=== PATIENT | female | born 1970 | race Caucasian/White ===

== ENCOUNTER 2020-10-16 05:04 | Inpatient (IN) | payer MEDICAID, OTHER ==
[~2020-10-16] VITALS: Ht 157.5 cm; Wt 87.1 kg
[2020-10-16] MEDS ORDERED: ACETAMINOPHEN 650MG SUPP PR STA (05:12)
[2020-10-16] MEDS ORDERED: SODIUM CHLORIDE 0.9% 1000ML BAG (SEPSIS BOLUS) IV ONE (05:15)
[2020-10-16] MEDS ORDERED: VANCOMYCIN 1 G PREMIX 200 ML IV ONE (05:15)
[2020-10-16] MEDS ORDERED: PIPERACILLIN/TAZ 3.375G PREMIX 50 ML IV ONE (05:15)
[2020-10-16 05:41] LABS: BASOPHILS % 0.4 % (0.0-2.0); EOSINOPHILS % 0.2 % (0.0-5.0); HEMATOCRIT. 36.7 % (36.0-48.0); HEMOGLOBIN. 11.4 g/dL (12.0-16.0); LYMPHOCYTES % 33.1 % (20.0-50.0); MEAN CORPUSCULAR HEMOGLOBIN 23.3 pg (28.0-32.0); MEAN CORPUSCULAR VOLUME 74.9 fL (81.0-99.0); MEAN PLATELET VOLUME 8.5 fl (7.4-10.4); MONOCYTES % 10.3 % (2.0-8.0); PLATELET 324 x1000/uL (130-400); RED CELL DISTRIBUTION WIDTH 18.6 % (11.6-14.6)
[2020-10-16 05:48] LABS: CHLORIDE 98 mEq/L (98-107)
[2020-10-16 05:50] LABS: INR 1.1; PROTHROMBIN TIME 12.2 sec (9.6-11.0)
[2020-10-16 06:50] LABS: CLARITY URINE CLOUDY (CLEAR); COLOR URINE YELLOW (YELLOW); KETONES URINE NEGATIVE (NEGATIVE); LEUKOCYTE ESTERASE URINE TRACE (NEGATIVE); NITRITE URINE NEGATIVE (NEGATIVE); OCCULT BLOOD URINE NEGATIVE (NEGATIVE); PROTEIN URINE 1+ (NEGATIVE); SPECIFIC GRAVITY URINE 1.024 (1.005-1.030)
[2020-10-16] MEDS ORDERED: ONDANSETRON HCL 4MG/2ML INJ IV PRN (09:30)
[2020-10-16 10:35] VITALS: BP 97/57
[2020-10-16 12:00] VITALS: BP 102/32
[2020-10-16] MEDS: PIPERACILLIN/TAZOBACTAM 3.375 G in DEXT 5% WATER 100 ML IV SCH ×2 (13:11→18:21)
[2020-10-16] MEDS: ACETAMINOPHEN 650MG SUPP PR PRN ×2 (13:12→20:53)
[2020-10-16] MEDS ORDERED: IPRATROPIUM/ALBUTEROL 0.5-3(2.5)MG/3ML NEB HHN PRN (15:45)
[2020-10-16 16:00] VITALS: BP 90/60
[2020-10-16] MEDS ORDERED: DOCU-138 GT (19:43)
[2020-10-16] MEDS ORDERED: OMEP20CA14 GT (19:43)
[2020-10-16] MEDS ORDERED: PROP40TA7 GT (19:43)
[2020-10-16] MEDS ORDERED: ATROV INH (19:43)
[2020-10-16] MEDS ORDERED: METO-293 GT (19:43)
[2020-10-16 20:00] VITALS: BP 99/60
[2020-10-16] MEDS: IPRATROPIUM/ALBUTEROL 0.5-3(2.5)MG/3ML NEB HHN SCH (20:46)
[2020-10-17 00:15] VITALS: BP 116/66
[2020-10-17] MEDS: PIPERACILLIN/TAZOBACTAM 3.375 G in DEXT 5% WATER 100 ML IV SCH ×4 (00:18→17:08)
[2020-10-17] MEDS: IPRATROPIUM/ALBUTEROL 0.5-3(2.5)MG/3ML NEB HHN SCH ×4 (01:50→21:57)
[2020-10-17] MEDS ORDERED: INSU100V3 SUBCUT (02:46)
[2020-10-17] MEDS ORDERED: LOV40 SQ (02:46)
[2020-10-17 04:00] VITALS: BP 108/69
[2020-10-17] MEDS: ACETAMINOPHEN 325MG TABLET PO PRN ×2 (04:28→22:34)
[2020-10-17 06:43] LABS: BASOPHILS % 0.7 % (0.0-2.0); EOSINOPHILS % 2.2 % (0.0-5.0); HEMOGLOBIN. 8.8 g/dL (12.0-16.0); LYMPHOCYTES % 24.8 % (20.0-50.0); MEAN CORPUSCULAR HEMOGLOBIN 23.9 pg (28.0-32.0); MEAN CORPUSCULAR VOLUME 75.6 fL (81.0-99.0); MONOCYTES % 8.8 % (2.0-8.0); NEUTROPHILS % 63.5 % (40.0-76.0)
[2020-10-17 06:46] LABS: CHLORIDE 102 mEq/L (98-107)
[2020-10-17] MEDS ORDERED: DEXTROSE 50% WATER 50ML SYRINGE IV PRN (07:00)
[2020-10-17] MEDS ORDERED: BLOOD SUGAR DIAGNOSTIC STRIP TEST SCH (07:20)
[2020-10-17 08:00] VITALS: BP 126/80
[2020-10-17] MEDS: BLOOD SUGAR DIAGNOSTIC STRIP TEST SCH ×3 (08:23→21:08)
[2020-10-17] MEDS: INSULIN LISPRO 100 UNITS/ML SUBCUT SCH ×4 (08:23→21:00)
[2020-10-17 10:02] LABS: PLATELET 243 x1000/uL (130-400)
[2020-10-17 12:00] VITALS: BP 126/81
[2020-10-17 16:00] VITALS: BP 137/79
[2020-10-17 20:37] VITALS: BP 133/82
[2020-10-17] MEDS: ACETYLCYSTEINE 100MG/ML 10% VIAL 4ML INH SCH (21:59)
[2020-10-18] VITALS: BP 113/61
[2020-10-18] MEDS: PIPERACILLIN/TAZOBACTAM 3.375 G in DEXT 5% WATER 100 ML IV SCH ×4 (00:05→17:02)
[2020-10-18 04:00] VITALS: BP 128/68
[2020-10-18] MEDS: IPRATROPIUM/ALBUTEROL 0.5-3(2.5)MG/3ML NEB HHN SCH ×4 (04:50→20:50)
[2020-10-18] MEDS: BLOOD SUGAR DIAGNOSTIC STRIP TEST SCH ×4 (06:23→21:00)
[2020-10-18 06:49] LABS: CHLORIDE 102 mEq/L (98-107)
[2020-10-18 06:51] LABS: BASOPHILS % 0.4 % (0.0-2.0); EOSINOPHILS % 6.4 % (0.0-5.0); HEMATOCRIT. 26.9 % (36.0-48.0); HEMOGLOBIN. 8.5 g/dL (12.0-16.0); LYMPHOCYTES % 27.5 % (20.0-50.0); MEAN CORPUSCULAR HEMOGLOBIN 23.6 pg (28.0-32.0); MEAN CORPUSCULAR VOLUME 74.2 fL (81.0-99.0); MEAN PLATELET VOLUME 8.9 fl (7.4-10.4); MONOCYTES % 6.6 % (2.0-8.0); NEUTROPHILS % 59.1 % (40.0-76.0); PLATELET 236 x1000/uL (130-400); RED BLOOD CELL COUNT 3.62 mill/uL (4.2-5.4)
[2020-10-18 08:00] VITALS: BP 134/71
[2020-10-18] MEDS: INSULIN LISPRO 100 UNITS/ML SUBCUT SCH ×4 (08:14→22:14)
[2020-10-18 12:00] VITALS: BP 144/83
[2020-10-18 16:00] VITALS: BP 140/73
[2020-10-18 17:20] LABS: BASOPHILS % 0.6 % (0.0-2.0); HEMATOCRIT. 27.1 % (36.0-48.0); HEMOGLOBIN. 8.4 g/dL (12.0-16.0); LYMPHOCYTES % 25.1 % (20.0-50.0); MEAN CORPUSCULAR HEMOGLOBIN 23.4 pg (28.0-32.0); MEAN CORPUSCULAR VOLUME 75.1 fL (81.0-99.0); MEAN PLATELET VOLUME 8.3 fl (7.4-10.4); MONOCYTES % 7.7 % (2.0-8.0); NEUTROPHILS % 59.6 % (40.0-76.0); PLATELET 223 x1000/uL (130-400); RED BLOOD CELL COUNT 3.61 mill/uL (4.2-5.4); RED CELL DISTRIBUTION WIDTH 18.2 % (11.6-14.6)
[2020-10-18 20:00] VITALS: BP 95/54
[2020-10-19] VITALS: BP 93/56
[2020-10-19] MEDS: PIPERACILLIN/TAZOBACTAM 3.375 G in DEXT 5% WATER 100 ML IV SCH ×5 (00:40→23:52)
[2020-10-19] MEDS: ACETYLCYSTEINE 100MG/ML 10% VIAL 4ML INH SCH ×2 (01:28→16:00)
[2020-10-19] MEDS: IPRATROPIUM/ALBUTEROL 0.5-3(2.5)MG/3ML NEB HHN SCH ×4 (01:28→20:58)
[2020-10-19 04:00] VITALS: BP 97/59
[2020-10-19 05:58] LABS: BASOPHILS % 0.6 % (0.0-2.0); EOSINOPHILS % 6.8 % (0.0-5.0); HEMATOCRIT. 26.5 % (36.0-48.0); HEMOGLOBIN. 8.2 g/dL (12.0-16.0); LYMPHOCYTES % 22.3 % (20.0-50.0); MEAN CORPUSCULAR HEMOGLOBIN 23.3 pg (28.0-32.0); MEAN CORPUSCULAR VOLUME 75.2 fL (81.0-99.0); MEAN PLATELET VOLUME 8.8 fl (7.4-10.4); MONOCYTES % 6.5 % (2.0-8.0); NEUTROPHILS % 63.8 % (40.0-76.0); PLATELET 253 x1000/uL (130-400); RED BLOOD CELL COUNT 3.53 mill/uL (4.2-5.4); RED CELL DISTRIBUTION WIDTH 18.3 % (11.6-14.6)
[2020-10-19 06:29] LABS: CHLORIDE 103 mEq/L (98-107)
[2020-10-19] MEDS: BLOOD SUGAR DIAGNOSTIC STRIP TEST SCH ×4 (06:35→21:27)
[2020-10-19] MEDS: INSULIN LISPRO 100 UNITS/ML SUBCUT SCH ×4 (06:36→21:28)
[2020-10-19] MEDS: ACETAMINOPHEN 325MG TABLET PO PRN (06:37)
[2020-10-19 08:00] VITALS: BP 99/46
[2020-10-19 12:00] VITALS: BP 118/80
[2020-10-19 16:00] VITALS: BP 116/79
[2020-10-19 20:00] VITALS: BP 120/76
[2020-10-20 00:16] VITALS: BP 130/82
[2020-10-20] MEDS: ACETAMINOPHEN 650MG SUPP PR PRN (01:00)
[2020-10-20] MEDS: ACETYLCYSTEINE 100MG/ML 10% VIAL 4ML INH SCH ×4 (01:43→22:01)
[2020-10-20] MEDS: IPRATROPIUM/ALBUTEROL 0.5-3(2.5)MG/3ML NEB HHN SCH ×4 (01:43→22:01)
[2020-10-20 04:00] VITALS: BP 110/69
[2020-10-20] MEDS: PIPERACILLIN/TAZOBACTAM 3.375 G in DEXT 5% WATER 100 ML IV SCH ×3 (06:03→17:21)
[2020-10-20] MEDS: BLOOD SUGAR DIAGNOSTIC STRIP TEST SCH ×4 (06:43→21:30)
[2020-10-20 08:05] VITALS: BP 120/71
[2020-10-20] MEDS: INSULIN LISPRO 100 UNITS/ML SUBCUT SCH ×4 (08:16→21:00)
[2020-10-20] MEDS: ACETAMINOPHEN 325MG TABLET PO PRN ×2 (09:55→15:45)
[2020-10-20 12:41] VITALS: BP 127/74
[2020-10-20 15:57] LABS: BASOPHILS % 0.5 % (0.0-2.0); HEMATOCRIT. 27.6 % (36.0-48.0); HEMOGLOBIN. 8.7 g/dL (12.0-16.0); LYMPHOCYTES % 21.4 % (20.0-50.0); MEAN CORPUSCULAR HEMOGLOBIN 23.5 pg (28.0-32.0); MEAN CORPUSCULAR VOLUME 75.2 fL (81.0-99.0); MEAN PLATELET VOLUME 8.6 fl (7.4-10.4); MONOCYTES % 7.9 % (2.0-8.0); NEUTROPHILS % 65.2 % (40.0-76.0); PLATELET 271 x1000/uL (130-400); RED BLOOD CELL COUNT 3.67 mill/uL (4.2-5.4); RED CELL DISTRIBUTION WIDTH 18.7 % (11.6-14.6)
[2020-10-20 16:09] LABS: CHLORIDE 104 mEq/L (98-107)
[2020-10-20 16:12] VITALS: BP 123/75
[2020-10-20 20:38] VITALS: BP 123/74
[2020-10-21] MEDS ORDERED: PIPERACILLIN/TAZOBACTAM 3.375 G/VIAL IV SCH
[2020-10-21] MEDS ORDERED: PIPERACILLIN/TAZOBACTAM 3.375 G in DEXT 5% WATER 100 ML IV SCH
[2020-10-21 00:31] VITALS: BP 127/79
[2020-10-21] MEDS: MEROPENEM 500 MG in SODIUM CHLORIDE 0.9% 50 ML IV SCH ×3 (00:49→17:00)
[2020-10-21 01:58] LABS: CLARITY URINE TURBID (CLEAR); COLOR URINE YELLOW (YELLOW); KETONES URINE NEGATIVE (NEGATIVE); LEUKOCYTE ESTERASE URINE TRACE (NEGATIVE); NITRITE URINE NEGATIVE (NEGATIVE); OCCULT BLOOD URINE 3+ (NEGATIVE); PH URINE 8.5 (4.5-8.0); PROTEIN URINE 1+ (NEGATIVE); SPECIFIC GRAVITY URINE 1.014 (1.005-1.030)
[2020-10-21] MEDS: IPRATROPIUM/ALBUTEROL 0.5-3(2.5)MG/3ML NEB HHN SCH ×4 (03:02→21:08)
[2020-10-21 04:00] VITALS: BP 116/83
[2020-10-21] MEDS: BLOOD SUGAR DIAGNOSTIC STRIP TEST SCH ×4 (06:36→21:00)
[2020-10-21 08:00] VITALS: BP 125/69
[2020-10-21] MEDS: INSULIN LISPRO 100 UNITS/ML SUBCUT SCH ×4 (08:46→21:00)
[2020-10-21] MEDS: ACETYLCYSTEINE 100MG/ML 10% VIAL 4ML INH SCH ×2 (09:53→14:56)
[2020-10-21 12:00] VITALS: BP 117/84
[2020-10-21 16:00] VITALS: BP 101/63
[2020-10-21 20:00] VITALS: BP 109/66
[2020-10-21] MEDS: ACETAMINOPHEN 325MG TABLET PO PRN (22:25)
[2020-10-22] VITALS: BP 113/66
[2020-10-22] MEDS: MEROPENEM 500 MG in SODIUM CHLORIDE 0.9% 50 ML IV SCH ×4 (00:44→23:53)
[2020-10-22] MEDS: IPRATROPIUM/ALBUTEROL 0.5-3(2.5)MG/3ML NEB HHN SCH ×4 (01:04→20:53)
[2020-10-22 04:00] VITALS: BP 114/76
[2020-10-22] MEDS: BLOOD SUGAR DIAGNOSTIC STRIP TEST SCH ×4 (06:49→20:36)
[2020-10-22 07:19] LABS: CHLORIDE 107 mEq/L (98-107)
[2020-10-22 07:42] LABS: HEMATOCRIT. 30.5 % (36.0-48.0); HEMOGLOBIN. 9.4 g/dL (12.0-16.0); MEAN CORPUSCULAR HEMOGLOBIN 23.7 pg (28.0-32.0); MEAN CORPUSCULAR VOLUME 77.2 fL (81.0-99.0); MEAN PLATELET VOLUME 8.4 fl (7.4-10.4); PLATELET 281 x1000/uL (130-400); RED BLOOD CELL COUNT 3.95 mill/uL (4.2-5.4); RED CELL DISTRIBUTION WIDTH 18.8 % (11.6-14.6)
[2020-10-22] MEDS: INSULIN LISPRO 100 UNITS/ML SUBCUT SCH ×4 (07:45→20:36)
[2020-10-22] MEDS: ACETYLCYSTEINE 100MG/ML 10% VIAL 4ML INH SCH (07:56)
[2020-10-22 08:16] VITALS: BP 156/88
[2020-10-22] MEDS ORDERED: SORBITOL 70% SOLN 30ML PO SCH (09:00)
[2020-10-22] MEDS ORDERED: BISACODYL 10MG SUPP PR PRN (09:00)
[2020-10-22] MEDS ORDERED: BISACODYL 10MG SUPP PR SCH (09:00)
[2020-10-22 12:19] VITALS: BP 118/74
[2020-10-22 16:10] VITALS: BP 128/86
[2020-10-22 16:27] LABS: PLATELET ESTIMATE NORMAL
[2020-10-22 20:00] VITALS: BP 130/78
[2020-10-22] MEDS: ACETAMINOPHEN 325MG TABLET PO PRN (20:41)
[2020-10-23] VITALS (7 sets, daily range): BP systolic 111–144; BP diastolic 73–90
[2020-10-23] MEDS: IPRATROPIUM/ALBUTEROL 0.5-3(2.5)MG/3ML NEB HHN SCH ×4 (00:48→20:37)
[2020-10-23] MEDS: ACETAMINOPHEN 325MG TABLET PO PRN (04:32)
[2020-10-23] MEDS: BLOOD SUGAR DIAGNOSTIC STRIP TEST SCH ×4 (06:20→20:54)
[2020-10-23] MEDS: INSULIN LISPRO 100 UNITS/ML SUBCUT SCH ×4 (07:50→20:54)
[2020-10-23] MEDS: ACETYLCYSTEINE 100MG/ML 10% VIAL 4ML INH SCH (09:49)
[2020-10-23] MEDS: MEROPENEM 500 MG in SODIUM CHLORIDE 0.9% 50 ML IV SCH ×2 (10:34→17:33)
[2020-10-24] VITALS: BP 115/57
[2020-10-24] MEDS: MEROPENEM 500 MG in SODIUM CHLORIDE 0.9% 50 ML IV SCH ×3 (00:31→18:13)
[2020-10-24] MEDS: IPRATROPIUM/ALBUTEROL 0.5-3(2.5)MG/3ML NEB HHN SCH ×4 (01:01→21:05)
[2020-10-24 04:00] VITALS: BP 129/81
[2020-10-24] MEDS: BLOOD SUGAR DIAGNOSTIC STRIP TEST SCH ×4 (06:20→21:30)
[2020-10-24] MEDS: INSULIN LISPRO 100 UNITS/ML SUBCUT SCH ×4 (07:50→21:35)
[2020-10-24 08:02] VITALS: BP 126/83
[2020-10-24 11:59] VITALS: BP 120/85
[2020-10-24 15:49] VITALS: BP 121/74
[2020-10-24 20:00] VITALS: BP 126/81
[2020-10-25] VITALS: BP 111/52
[2020-10-25] MEDS: MEROPENEM 500 MG in SODIUM CHLORIDE 0.9% 50 ML IV SCH ×2 (00:39→10:05)
[2020-10-25] MEDS: IPRATROPIUM/ALBUTEROL 0.5-3(2.5)MG/3ML NEB HHN SCH ×3 (01:36→14:57)
[2020-10-25 04:00] VITALS: BP 112/62
[2020-10-25] MEDS: INSULIN LISPRO 100 UNITS/ML SUBCUT SCH ×2 (07:26→12:50)
[2020-10-25] MEDS: BLOOD SUGAR DIAGNOSTIC STRIP TEST SCH ×2 (07:26→12:20)
[2020-10-25 07:56] VITALS: BP 127/87
[2020-10-25 12:13] VITALS: BP 124/79
[2020-10-25 16:05] VITALS: BP 133/82
[2020-10-25 17:36] VITALS: BP 133/82
== END 2020-10-25 18:19 | DRG 720 ==
LOC: ER 05:04 → 7WST 06:18 → ENRESERV 07:16 → 6WST 08:24 → 7WST 08:47 → 6WST 10-17 00:01
PROVIDERS: ADMIT Internal Medicine; ATTEND Internal Medicine
DX: A41.9 Sepsis, unspecified organism (principal); E43 Unspecified severe protein-calorie malnutrition; J18.9 Pneumonia, unspecified organism; J96.20 Acute and chronic respiratory failure, unspecified whether with hypoxia or hypercapnia; E87.1 Hypo-osmolality and hyponatremia; Z20.822 Contact with and (suspected) exposure to COVID-19; R13.10 Dysphagia, unspecified; Z86.73 Personal history of transient ischemic attack (TIA), and cerebral infarction without residual deficits; Z93.1 Gastrostomy status; Z79.4 Long term (current) use of insulin; Z79.899 Other long term (current) drug therapy; Z68.35 Body mass index [BMI] 35.0-35.9, adult
CPT/HCPCS: 36415; 71045; 71250; 74176; 80048; 80053; 81003; 82962; 83036; 83605; 84145; 84484; 85025; 87070; 87804; 93005; 94640; 99291; A6261; C1893; J1815; J2185; J2543; J3370; J7030; J7040; J7060; J7608; U0003